=== PATIENT | male | born 1980 | race Caucasian/White ===

== ENCOUNTER 2018-10-25 23:53 | Emergency (ER) | payer OTHER ==
[2018-10-26] MEDS ORDERED: KETOROLAC TROMETHAMINE 15MG/ML ONE (00:47)
[2018-10-26 01:04] LABS: BASOPHILS % (AUTO) 0.4 % (0.0-5.0); EOSINOPHILS % (AUTO) 0.3 % (0.0-8.0); HEMATOCRIT 42.4 % (42-54); LYMPHOCYTES % (AUTO) 15.6 % (21.0-51.0); MEAN CORPUSCULAR HEMOGLOBIN 31.9 pg (27.0-33.0); MEAN CORPUSCULAR HGB CONC 33.7 g/dL (32.0-36.0); MEAN CORPUSCULAR VOLUME 94.6 fL (79-99); MONOCYTES % (AUTO) 9.2 % (3.0-13.0); NEUTROPHILS % (AUTO) 74.5 % (40.0-77.0); PLATELET COUNT (AUTO) 294 K/uL (130-400); RED BLOOD CELL COUNT(AUTO) 4.48 MIL/uL (4.50-6.20); RED CELL DISTRIBUTION WIDTH 12.9 % (11.0-15.5); WHITE BLOOD COUNT (AUTO) 13.6 K/uL (4.8-10.8)
[2018-10-26 01:14] LABS: CREATININE 0.8 mg/dL (0.5-1.5); POTASSIUM 4.4 mmol/L (3.5-5.1)
[2018-10-26 01:19] LABS: ALBUMIN 3.8 g/dL (3.5-5.0); BILIRUBIN,TOTAL 0.5 mg/dL (0.2-1.0); TOTAL PROTEIN, SERUM 7.5 g/dL (6.0-8.3)
== END 2018-10-26 02:04 | disposition home or self-care (01) ==
LOC: EDH 23:53
DX: H92.02 Otalgia, left ear (principal); R51 Headache
CPT/HCPCS: 36415; 70450; 70486; 80053; 85025; 96374; 99285; J1885

== ENCOUNTER 2024-01-25 23:34 | Emergency (ER) | payer OTHER ==
[~2024-01-25] VITALS: Ht 205.7 cm; Wt 103.4 kg
[2024-01-26 00:10] LABS: BASOPHILS # (AUTO) 0.07 K/uL (0.00-0.20); EOSINOPHILS # (AUTO) 0.17 K/uL (0.00-0.70); EOSINOPHILS % (AUTO) 2.4 % (0.0-8.0); HEMATOCRIT 41.7 % (42-54); IMMATURE GRANULOCYTE ABSOLUTE 0.02 K/uL (0-1); LYMPHOCYTES # (AUTO) 2.8 K/uL (1.0-4.8); LYMPHOCYTES % (AUTO) 39.1 % (21.0-51.0); MEAN CORPUSCULAR HEMOGLOBIN 32.5 pg (27.0-33.0); MEAN CORPUSCULAR HGB CONC 34.3 g/dL (32.0-36.0); MEAN CORPUSCULAR VOLUME 94.8 fL (79-99); MONOCYTES # (AUTO) 0.6 K/uL (0.1-1.0); MONOCYTES % (AUTO) 8.1 % (3.0-13.0); NEUTROPHILS # (AUTO) 3.5 K/uL (1.8-7.7); NEUTROPHILS % (AUTO) 49.1 % (40.0-77.0); PLATELET COUNT (AUTO) 239 K/uL (130-400); RED CELL DISTRIBUTION WIDTH 11.9 % (11.0-15.5); WHITE BLOOD COUNT (AUTO) 7.1 K/uL (4.8-10.8)
[2024-01-26 00:15] LABS: CREATININE 0.9 mg/dL (0.5-1.3); POTASSIUM 3.9 mmol/L (3.5-5.1)
[2024-01-26 00:17] LABS: APPEARANCE,URINE CLEAR (CLEAR); BILIRUBIN,URINE NEGATIVE (NEGATIVE); COLOR,URINE COLORLESS (YELLOW); GLUCOSE, URINE (UA) NEGATIVE (NEGATIVE); KETONES,URINE NEGATIVE (NEGATIVE); LEUKOCYTE ESTERASE ,URINE NEGATIVE Leu/uL (NEGATIVE); NITRATE,URINE NEGATIVE (NEGATIVE); OCCULT BLOOD,URINE NEGATIVE (NEGATIVE); PH,URINE 6.5 (5.0-8.0); PROTEIN,URINE NEGATIVE (NEGATIVE); UROBILINOGEN,URINE 0.2 mg/dL (0.2-1.0)
[2024-01-26 00:20] VITALS: TEMP 98
[2024-01-26 00:21] LABS: ADD UA MICROSCOPIC NO
[2024-01-26 00:34] LABS: B-TYPE NATRIURETIC PEPTIDE 6 pg/mL (0-100)
--- NOTE | 2024-01-26 00:55 | HMCIMG ---
CHEST 1VW HISTORY: Chest pain COMPARISON: 10/26/2011 FINDINGS: A frontal projection of the chest was obtained. No acute pulmonary infiltrates is seen. The heart is normal in size. Prominent interstitial markings are seen. No evidence of aortic calcification is seen. IMPRESSION: 1. No acute pulmonary infiltrate is seen.
[2024-01-26] MEDS: Solu-medROL 40MG VIAL IVP ONE (01:11)
--- NOTE | 2024-01-26 01:37 | ERN ---
ED Note History of Present Illness Stated Complaint: C/O SOB, CHEST DISCOMFORT, DIZZINESS Chief Complaint: Shortness of Breath Time Seen by MD: 00:25 Dictation: This is a 43-year-old male who presented to the emergency room stating that he had some tightness in the chest associated with sensation of shortness of breath basically feeling like he need a more air. He recently was diagnosed with left otitis media and has been on Z-Satya. Denied any nausea vomitings diarrhea hematemesis or melena he denied cough sputum or hemoptysis. He stated that he googled the Internet and there was a suggestion of a possible heart attack and hence he came to the ER somewhat anxious that he was having a heart attack. No history of any lower extremity pain, swelling. No diaphoresis syncope palpitations He used to be 400 lb and changed his lifestyle and started working out and lost significant amount of weight Temperature 97.1 pulse 53 respirations 20 blood pressure 144/78 with a pulse oximetry of 97 % on room air Allergies: Coded Allergies: No Known Allergies (Unverified Allergy, 08/24/11) Past Medical History Past Medical History: No Pertinent History Surgical History: Other Family History: Negative Social History: Smokers (Was a heavy smoker in the past for more than 20 years quit smoking in June per patient's report), ETOH (Admits to social) RN Note Reviewed/Agreed w/PFSH: Yes Review of System Dictation Constitutional: Negative for fever,chills, and weight loss Eyes: Negative for injury, pain,redness, and discharge ENT: Negative for injury,pain or swelling Cardiovascular: Negative for chest pain, palpitations, and edema. Describes it more as chest tightness Respiratory: Positive for shortness of breath, denies cough, and wheezing, Abdomen/GI: Negative for abdominal pain, nausea, vomiting, diarrhea, and constipation Back: Negative for injury and pain : Negative for injury, bleeding and discharge MS/Extremity: Negative for injury and deformity Skin: Negative for rash, and discoloration Neuro: Negative for headache, weakness, numbness, tingling, and seizure Psych: Negative for suicide ideation, homicidal ideation, and hallucinations Initial Vital Sign VS Vital Signs Date Time Temp Pulse Resp B/P (MAP) Pulse Ox O2 Delivery O2 Flow Rate FiO2 01/25/24 23:36 97.2 53 20 144/78 98 Room Air 01/26/24 00:20 0 21 Physical Exam Dictation General: awake, alert, NAD Head/Face: Normocephalic, atraumatic Eyes: PERRL, EOMI, vision at baseline ENT: oral cavity clear, TMs clear, no signs of infection Neck: Trachea midline, supple, no nuchal rigidity Cardiovascular: RRR, normal S1/S2, No MRGs, no JVD Respiratory: Decreased air entry bilaterally with prolonged expiratory phase Abdomen: Soft, non-tender, non-distended, normal bowel sounds, no guarding or rebound. Skin: Warm, dry, normal turgor, no rash MS/Extremity: Pulses equal, no cyanosis, neurovascular intact, FROM Neuro: COAx4, GCS 15, strength 5/5, CN 2-12 intact, normal cerebellar exam, normal gait, Psych: Normal behavior, mood, and affect normal Extremities-trace edema without any palpable cords, Homans sign is negative Results (Laboratory/Radiology) Laboratory/Radiology Laboratory Tests Test 01/25/24 23:56 01/26/24 00:27 White Blood Count 7.1 K/uL (4.8-10.8) Red Blood Count 4.40 MIL/uL (4.50-6.20) L Hemoglobin 14.3 g/dL (14.0-18.0) Hematocrit 41.7 % (42-54) L Mean Corpuscular Volume 94.8 fL (79-99) Mean Corpuscular Hemoglobin 32.5 pg (27.0-33.0) Mean Corpuscular Hemoglobin Concent 34.3 g/dL (32.0-36.0) Red Cell Distribution Width 11.9 % (11.0-15.5) Platelet Count 239 K/uL (130-400) Mean Platelet Volume 9.3 fL (7.5-10.5) Immature Granulocyte % (Auto) 0.3 % (0-1) Neutrophils (%) (Auto) 49.1 % (40.0-77.0) Lymphocytes (%) (Auto) 39.1 % (21.0-51.0) Monocytes (%) (Auto) 8.1 % (3.0-13.0) Eosinophils (%) (Auto) 2.4 % (0.0-8.0) Basophils (%) (Auto) 1.0 % (0.0-5.0) Neutrophils # (Auto) 3.5 K/uL (1.8-7.7) Lymphocytes # (Auto) 2.8 K/uL (1.0-4.8) Monocytes # (Auto) 0.6 K/uL (0.1-1.0) Eosinophils # (Auto) 0.17 K/uL (0.00-0.70) Basophils # (Auto) 0.07 K/uL (0.00-0.20) Absolute Immature Granulocyte (auto 0.02 K/uL (0-1) Nucleated Red Blood Cells 0.0 % (0.0-0.19) Urine Color COLORLESS (YELLOW) Urine Appearance CLEAR (CLEAR) Urine pH 6.5 (5.0-8.0) Urine Specific [place] 1.008 (1.001-1.031) Urine Protein NEGATIVE mg/dL (NEGATIVE) Urine Glucose (UA) NEGATIVE mg/dL (NEGATIVE) Urine Ketones NEGATIVE mg/dL (NEGATIVE) Urine Occult Blood NEGATIVE (NEGATIVE) Urine Nitrate NEGATIVE (NEGATIVE) Urine Bilirubin NEGATIVE mg/dL (NEGATIVE) Urine Urobilinogen 0.2 mg/dL (0.2-1.0) Urine Leukocyte Esterase NEGATIVE Randa/uL Sodium Level 139 mmol/L (136-145) Potassium Level 3.9 mmol/L (3.5-5.1) Chloride Level 102 mmol/L (101-111) Carbon Dioxide Level 32 mmol/L (21-32) Blood Urea Nitrogen 15 mg/dL (7-18) Creatinine 0.9 mg/dL (0.5-1.3) Glomerular Filtration Rate Calc 110 mL/min (>90) Random Glucose 92 mg/dL (70-105) Total Calcium 8.8 mg/dL (8.5-10.1) Total Creatine Kinase 100 U/L (21-232) B-Type Natriuretic Peptide 6 pg/mL (0-100) Troponin I < 0.05 ng/mL (0.00-0.05) Labs Reviewed?: Yes ED Course ED Course Orders Procedure Category Date Status Time Vital Signs Per CPOE 01/25/24 Transmitted Routine 23:40 B-Type Natriuretic LAB 01/25/24 Complete Peptide 23:40 Chest 1vw RAD 01/25/24 Resulted 23:40 12 Lead Ekg Tracing- EKG 01/25/24 Logged Technical 23:40 Oxygen By Nc/Pulse Ox CPOE 01/25/24 Transmitted 23:40 Maintain Iv CPOE 01/25/24 Transmitted 23:40 Iv Insertion CPOE 01/25/24 Transmitted 23:40 Cardiac Monitoring CPOE 01/25/24 Transmitted 23:40 Pulse Oximetry With CPOE 01/25/24 Transmitted Vs And Prn 23:40 Cbc With Differential LAB 01/25/24 Complete 23:40 Activity: Br W/Brp CPOE 01/25/24 Transmitted With Assist 23:40 Creatine Kinase, Total LAB 01/25/24 Complete 23:40 Urinalysis Profile LAB 01/25/24 Complete 23:40 Troponin Poc Order LAB 01/25/24 Complete Only 23:40 Bedside Troponin-I LAB.ER 01/25/24 In Process (Poc) 23:40 Basic Metabolic Panel LAB 01/25/24 Complete 23:40 Methylprednisolone PHA 01/26/24 Complete Succ 40mg (Solu-Medro 01:00 Ipratropium/Albuterol PHA 01/26/24 Complete Neb (Duoneb) 01:00 Current Medications Medications (Trade) Dose Ordered Sig/Sandrita Route PRN Reason Start Time Stop Time Status Last Admin Dose Admin Albuterol (DUOneb) 1 UDVIAL ONCE ONCE IH 01/26/24 01:00 01/26/24 01:01 DC Methylprednisolone Sodium Succinate (Solu-medROL 40MG) 40 mg ONCE ONCE IVP 01/26/24 01:00 01/26/24 01:01 DC 01/26/24 01:11 Vital Signs Date Time Temp Pulse Resp B/P (MAP) Pulse Ox O2 Delivery O2 Flow Rate FiO2 01/26/24 00:20 98.1 58 16 120/52 97 Room Air* 0 21 01/25/24 23:36 97.2 53 20 144/78 98 Room Air We will perform diagnostic labs, advanced imaging and administer medications according to the patient's complaint. Once the results are available, will review and personally interpreted the labs to rule out any acute life- threatening emergency the trach require immediate intervention and treatment. I will then re-evaluate the patient after treatment and diagnostic exams have return to determine whether the patient requires any further testing, can safely be discharged home or need further admission to hospital for additional treatment and evaluation. 12:26 a.m. CBC within normal limits BNP 7 is within normal limits urinalysis is negative chest x-ray and brain natriuretic peptide are pending 1:20 a.m. chest x-ray hyperinflation but no obvious focal infiltrate or any other abnormality noted. Had a long discussion with the patient and family member and went over the labs EKG and troponins that were all unremarkable. My clinical index of suspicion for acute cardiac event at this time is very low I suspect pulmonary etiology likely COPD and small airway obstruction as a likely cause of his shortness of breath. Offered 2 options 1. Admit him to the hospital to further manage and workup cardiac disease 2. To follow up with his primary care and to pursue outpatient cardiac workup. He did not want to be admitted to the hospital and wanted to pursue as an outpatient He does not feel that the bronchodilator helped him much Medical Decision Making MDM MDM: Differential diagnosis: Cardiac, small airway obstruction, anxiety, labyrinthitis Rationale: Tests considered and ordered secondary to shared decision making include: Previous outside records reviewed: Old ER visits. Risk of complication and/or morbidity or mortality of patient management: None Medications-Per medication reconciliation Need for hospitalization: Patient does not meet criteria for hospitalization. Need for emergency major/minor surgery: No There are no social concerns with this patient. Prescription drug management Prescriptions will include symptomatic care Patient's prior external medical records from other ER visits were reviewed by me as indicated. Prior testing and results from previous visits were reviewed. Prior tests were taken into account with medical decision making and resource utilization, independent historian/historians were used to obtain complete medical history. I independently interpreted the test that were performed, results were reviewed by me and considered findings on radiology if ordered. Medical management and examination interpretation discussions were had by me with other qualified healthcare professionals as indicated for the patient's care. DX & DISP Disposition: Discharge Departure Impression: Primary Impression: Atypical chest pain Additional Impressions: COPD (chronic obstructive pulmonary disease), Nicotine dependence in remission Condition: Stable Additional Instructions: Patient and the caregiver have been informed of all the diagnostic tests and the imaging conducted during the today's visit to the emergency room and has verbalized understanding of the results I have personally reviewed and interpreted all diagnostic exams performed here in the ER today as well as the vital signs documented by the nursing staff. The patient is now being discharged to home and should follow up with the primary care physician or the specialist as directed by the ER staff. Follow-up with primary care provider in 1 to 2 days. Take medications as directed here in the emergency room. Okay to continue home medications unless otherwise discussed during your visit in the emergency room today. Return to your nearest emergency room if symptoms worsen or if there is no improvement. Call 911 if you need immediate assistance. Take Tylenol or Motrin [id number] as needed and if no contraindications are present. Increase oral hydration. A wound culture or urine culture was ordered here in the emergency room department please follow-up with primary care provider and advise them to get repeat ports from our facility. If you had any [place] wrap/splints that were applied here, please do not remove them until you see your primary care or specialty. Referrals: KELLI CONTRERAS (PCP) KISHAN EWING MD Jan 26, 2024 01:37
[2024-01-26 02:31] VITALS: BP 122/67; PULSE 61; RESP 16; O2SAT 96
--- NOTE | 2024-01-26 02:38 | NUR ---
PT STILL PENDING BREATHING TREATMENT PT UP FOR DISCHARGE; PT REFUSING BREATHING TREATMENT AT THIS TIME. PT EDUCATED REGARDING BENEFITS OF ORDERED BREATHING TREATMENT; PT STILL REFUSING MEDICATION AND REPORTS "IM FEELING BETTER AND WANT TO GO HOME." PT IN NO DISTRESS AT THIS TIME. ED MD AWARE.
[2024-01-26] MEDS: IpraTROPium/alBUTERol SULFATE 3 ML SOLUTION IH ONE (02:45)
--- NOTE | 2024-01-26 06:20 | EKG ---
[facility] Test Date: 2024-01-25 Test Time: 23:29:36 Pat Name: CARMEN ELIZABETH Department: [facility] Room: Gender: M [employer]: [id number] : 1980 Requested By: KISHAN EWING Order Number: [id number] Reading MD: Bertha Steward Measurements Intervals [place] Rate: 57 P: 55 OR: 192 QRS: -3 QRSD: 122 T: 37 QT: 399 QTc: 391 Interpretive Statements Sinus rhythm Nonspecific intraventricular conduction delay No previous ECG available for comparison Electronically Signed On 01-26-2024 09:22:47 X RAY DEVELOPER by Bertha Steward Please click the below link to view image of tracing.
== END 2024-01-26 02:38 | disposition home or self-care (01) ==
LOC: EDH 23:34
DX: R07.89 Other chest pain (principal); J44.9 Chronic obstructive pulmonary disease, unspecified; F17.200 Nicotine dependence, unspecified, uncomplicated
CPT/HCPCS: 99285; 71045; 82550; 84484; 80048; 83880; 85025; 81003; 36415 ×2; 93005; 96374; J2919

== ENCOUNTER → 2024-03-15 | Outpatient (CLI) | payer OTHER | END | disposition home or self-care (01) | LOC: RAH 13:14 | PROVIDERS: ATTEND Internal Medicine Cardiovascular Disease | DX: Z13.6 Encounter for screening for cardiovascular disorders (principal) | CPT/HCPCS: 75571 ==